=== PATIENT | female | born 1965 | race Caucasian/White ===

== ENCOUNTER 2020-03-13 13:23 | Outpatient (CLI) | payer OTHER, SELFPAY ==
--- NOTE | ~2020-03-13 | XR_ITS ---
EXAMINATION: XR hand RT min 3V, XR finger 1st RT min 2V EXAM DATE: 03/13/2020 13:48 INDICATION: Right finger pain, thumb locks up. No known recent injury. TECHNIQUE: Right hand frontal, lateral and oblique projections obtained and reviewed. Right 1st finge r frontal, lateral and oblique projections obtained and reviewed. There is no prior study for irina carlson. FINDINGS: Right metacarpal bones are unremarkable. There are no bony erosions identified. There is minimal polyarticular interphalangeal primary osteoarthritis. Carpal bones are unremarkable. There a re no acute fractures or dislocations identified. There is no subcutaneous gas. The soft tissue is unremarkable. There are no radiopaque foreign bodies. IMPRESSION: Minimal polyarticular interphalangeal osteoarthritis. Reviewed, dictated and finalized at location B. IMPRESSION: Minimal polyarticular interphalangeal osteoarthritis.
== END 2020-03-13 13:24 | disposition home or self-care (01) ==
PROVIDERS: PCP Internal Medicine; Visit Provider Nurse Practitioner Family
DX: M79.644 Pain in right finger(s) (principal); M19.042 Primary osteoarthritis, left hand; M19.041 Primary osteoarthritis, right hand
CPT/HCPCS: 73130; 73140

== ENCOUNTER 2020-04-13 10:07 | Outpatient (CLI) | payer OTHER, SELFPAY ==
--- NOTE | ~2020-04-13 | MM_ITS ---
EXAMINATION: MM screening judith BI w jacqueline HISTORY: Screening mammogram TECHNIQUE: Craniocaudal and mediolateral oblique 3-D tomosynthesis images were obtained and synthetic 2-D images were generated. CAD analysis was submitted and interpreted. COMPARISON: 03/05/2019 bilateral digital screening mammogram 02/14/2017 diagnostic right digital mammogram and complete right breast ultrasound 02/05/2017 bilateral digital screening mammogram BREAST PARENCHYMAL COMPOSITION: The breasts are heterogeneously dense, which may obscure small masses . FINDINGS: Stable mild fibroglandular asymmetry. There is no evidence of suspicious mass, calcificatio n, or architectural distortion to suggest malignancy in either breast. There has been no suspicious i nterval change. IMPRESSION: 1. No mammographic evidence of malignancy. 2. Recommend routine screening mammography in one year. BI-RADS Category 2: Benign finding(s). Reviewed, dictated and finalized at location A.
== END 2020-04-13 10:08 | disposition home or self-care (01) ==
PROVIDERS: PCP Internal Medicine; Visit Provider Obstetrics & Gynecology
DX: Z12.31 Encounter for screening mammogram for malignant neoplasm of breast (principal)
CPT/HCPCS: 77063; 77067

== ENCOUNTER 2021-04-26 08:39 | Outpatient (CLI) | payer OTHER, SELFPAY ==
--- NOTE | ~2021-04-26 | MM_ITS ---
EXAMINATION: MM screening judith BI w jacqueline HISTORY: Screening TECHNIQUE: Craniocaudal and mediolateral oblique 3-D tomosynthesis images were obtained and synthetic 2-D images were generated. CAD analysis was submitted and interpreted. COMPARISON: Comparison to multiple prior studies sequentially, with oldest reviewed study dated 01/11. BREAST PARENCHYMAL COMPOSITION: The breasts are heterogenously dense, which may obscure small masses. FINDINGS: There is no evidence of suspicious mass, calcification, or architectural distortion to sugg est malignancy in either breast. There has been no suspicious interval change. IMPRESSION: 1. No mammographic evidence of malignancy. 2. Recommend routine screening mammography in one year. BI-RADS Category 1: Negative Reviewed, dictated and finalized at location A.
== END 2021-04-26 08:40 | disposition home or self-care (01) ==
LOC: ANHIMG 08:40
PROVIDERS: PCP Internal Medicine; Visit Provider Family Medicine
DX: Z12.31 Encounter for screening mammogram for malignant neoplasm of breast (principal)
CPT/HCPCS: 77063; 77067

== ENCOUNTER 2021-05-31 00:45 | Day surgery (SDC) | payer OTHER, SELFPAY ==
[2021-05-22 13:48] VITALS: BMI 26.3
[2021-05-31 08:14] VITALS: BP 105/62; PULSE 95; RESP 16; TEMP 36.1; O2SAT 98; BMI 26.0
--- NOTE | 2021-05-31 08:14 | WPDANESEPPF ---
Anes - Initial Pre Proc Eval Procedure: Operation Date: 05/31/21 09:30 Proposed Procedures p Screening Colonoscopy - Yousuf Hammond MD Date/Time: 05/31/21 08:14 Surgeon: Yousuf Hammond MD Pre Op Diagnosis: neoplasm screening Z12.11 Patient Data Age: 56 Gender: F Height: 1.68 m Weight: 74 kg Allergies Allergy/AdvReac Type Severity Reaction Status Date / Time No Known Allergies Allergy Unverified 05/31/21 08:13 Home Medications Medication Instructions Recorded Confirmed Type levothyroxine 125 mcg PO DAILY 05/22/21 05/31/21 History progesterone micronized 200 mg PO HS 05/22/21 05/22/21 History testosterone 2 pump TRANSDERMAL DAILY 05/22/21 05/22/21 History valacyclovir 500 mg PO DAILY 05/22/21 05/22/21 History Patient hx anesthesia problems: none Family hx anesthesia problems: none PMFSH Past Medical History Medical History (Updated 05/31/21 @ 08:55 by Yousuf Hammond MD) Arthritis Depression Hypothyroidism Family History Family History (Updated 02/24/19 @ 13:25 by DOCTOR UNKNOWN) Father Diabetes mellitus Family history of obesity Hypertension Social History Social History Smoking status: Former smoker Tobacco type: cigarettes Smoking end date: 09/15/16 Alcohol intake: current Drinks per week: 12 Living arrangements: with family Spiritual care concerns: No Anes - Eval Final PreProcedure Day of Procedure 05/31/21 08:14 Patient weight: overweight Heart: regular rate and rhythm Lungs: clear to auscultation and normal air movement Airway: Mallampati scale class II Neurological: alert and oriented Last oral intake: >/= 8 hours ASA classification: II Emergent: no Anesthetic plan: proceed Anesthesia type and monitoring: general GIVS Informed Consent: The patient's anesthetic plan and its attendant risks and benefits were discussed with the patient/family/POA. Questions were solicited and answers provided to the satisfaction of the patient/family/POA.
[2021-05-31] MEDS: LACTATED RINGERS 1,000 ML 150 ML IV CONT (08:30)
--- NOTE | 2021-05-31 08:53 | WPDGICN ---
Assessment and Plan Assessment and plan (1) Encounter for screening colonoscopy: Code(s): Z12.11 - Encounter for screening for malignant neoplasm of colon Status: Acute Assessment and Plan: Patient presents for screening colonoscopy today. Further recommendations will be given after endoscopy. GI Consult Note Consult date/time: 05/31/21 08:53 HPI: Yue Arias is a 56 year old female Presents for screening colonoscopy. Patient reports that her current weight appetite bowel movements are normal. Patient denies abdominal pain. She has had no bleeding. Family history is noncontributory. neoplasia screening to be performed today. Review of Systems Review of Systems: All systems reviewed & are unremarkable except as noted in HPI and below PMFSH Past Medical History Medical History (Updated 05/31/21 @ 08:55 by Yousuf Hammond MD) Arthritis Depression Hypothyroidism Family History Family History (Updated 02/24/19 @ 13:25 by DOCTOR UNKNOWN) Father Diabetes mellitus Family history of obesity Hypertension Social History Social History Smoking status: Former smoker Tobacco type: cigarettes Smoking end date: 09/15/16 Alcohol intake: current Drinks per week: 12 Living arrangements: with family Spiritual care concerns: No Meds Home Medications and Allergies Home Medications Medication Instructions Recorded Confirmed Type levothyroxine 125 mcg PO DAILY 05/22/21 05/31/21 History progesterone micronized 200 mg PO HS 05/22/21 05/22/21 History testosterone 2 pump TRANSDERMAL DAILY 05/22/21 05/22/21 History valacyclovir 500 mg PO DAILY 05/22/21 05/22/21 History Allergies Allergy/AdvReac Type Severity Reaction Status Date / Time No Known Allergies Allergy Unverified 05/31/21 08:13 Vital Signs Vital Signs - 24 hr 05/31/21 08:14 Temperature 97 F L Pulse Rate 95 Respiratory Rate 16 Blood Pressure 105/62 Pulse Oximetry 98 Exam Narrative: Physical exam reveals patient to be alert. Vital signs stable. HEENT exam is unremarkable. Patient is anicteric. Lungs are clear to auscultation and percussion. Heart is without murmur or extra sounds. Abdominal exam bowel sounds are present soft nontender with no organomegaly. Digital external rectal exam is normal.
[2021-05-31 09:53] VITALS: BP 94/58; PULSE 70; RESP 16; O2SAT 100
[2021-05-31 10:03] VITALS: BP 85/54; PULSE 74; RESP 16; O2SAT 100
[2021-05-31 10:10] VITALS: BP 101/62; PULSE 64; RESP 16; O2SAT 100
== END 2021-05-31 10:20 | disposition home or self-care (01) ==
PROVIDERS: Visit Provider Internal Medicine Gastroenterology
PROC: 0DJD8ZZ Inspection of Lower Intestinal Tract, Via Natural or Artificial Opening Endoscopic (ICD-10-PCS; CPT 45378; principal; 2021-05-31 09:30)
DX: Z12.11 Encounter for screening for malignant neoplasm of colon (principal); K64.8 Other hemorrhoids; K57.30 Diverticulosis of large intestine without perforation or abscess without bleeding; E03.9 Hypothyroidism, unspecified; F32.9 Major depressive disorder, single episode, unspecified; Z87.891 Personal history of nicotine dependence
CPT/HCPCS: 45378; J2704; J7120

== ENCOUNTER → 2022-05-07 13:50 | Outpatient (CLI) | payer OTHER, SELFPAY ==
--- NOTE | ~2022-05-07 | CT_ITS ---
EXAMINATION: CT sinus wo con DATE: 05/07/2022 14:04 INDICATION: Chronic sinusitis. Frequent stuffy feeling. TECHNIQUE: Computed tomography (CT) of the paranasal sinuses was performed without intravenous contra st. The dose-length product was 294.16 mGy-cm. Automated exposure control and iterative reconstructio n technique were employed. COMPARISON: None FINDINGS: There are postsurgical changes of the frontal sinuses unchanged. There is mild mucosal thic kening of the ethmoid and left maxillary sinuses. Mild mucosal thickening of the frontal sinus. There are changes of resection of the right ostiomeatal unit. Left ostiomeatal unit is patent. Mastoids ar e pneumatized. Leftward nasal septal deviation. IMPRESSION: 1. Mild sinus disease. Reviewed, dictated and finalized at location A. IMPRESSION: 1. Mild sinus disease.
== END ==
PROVIDERS: PCP Family Medicine; Visit Provider Otolaryngology
DX: J32.8 Other chronic sinusitis (principal)
CPT/HCPCS: 70486

== ENCOUNTER 2022-05-17 10:20 | Observation (INO) | payer OTHER, SELFPAY ==
[2022-05-17 10:21] VITALS: BP 168/104; PULSE 98; RESP 20; TEMP 36.6; O2SAT 100
--- NOTE | 2022-05-17 10:50 | PC.NURSE ---
After much convincing patient reluctantly changes into paper scrubs. All belongings removed and secured in locked cabinet. Sruthi, cartographic technician present at bedside.
--- NOTE | 2022-05-17 11:05 | PC.NURSE ---
Dr. Melo at bedside to assess pt.
--- NOTE | 2022-05-17 11:45 | ED.GENADULT ---
[facility] - General Adult General Chief complaint: Psychiatric Symptoms Stated complaint: psych Time Seen by Provider: 05/17/22 10:23 History of Present Illness HPI narrative: 57-year-old female with a self-reported history of a psychotic break when she was 22 years old presented to the emergency department for psychiatric evaluation. Patient presented to the police department this morning and was asking bizarre questions. Patient ultimately made multiple repeated statements of I am going to kill myself, but you are going to keep me safe . Patient's friend states that the patient has been having hormonal issues and has not been sleeping well as of recently. Patient states she has not been taking her levothyroxine. Related Data Home Medications Medication Instructions Recorded Confirmed progesterone micronized 200 mg 200 mg PO HS 05/22/21 05/17/22 capsule testosterone 12.5 mg/1.25 gram per 2 pump transdermal DAILY 05/22/21 05/17/22 actuation (1%) transdermal gel pump valacyclovir 500 mg tablet 500 mg PO DAILY PRN Cold Sores 05/22/21 05/17/22 ibuprofen 200 mg tablet 200 mg PO Q6H PRN Pain 05/17/22 05/17/22 sertraline 50 mg tablet 75 mg PO DAILY 05/17/22 05/17/22 zolpidem 6.25 mg tablet,extended 6.25 mg PO HS PRN Sleep 05/17/22 05/17/22 release,multiphase Allergies Allergy/AdvReac Type Severity Reaction Status Date / Time No Known Allergies Allergy Unverified 05/31/21 08:13 Review of Systems Review of Systems: CONSTITUTIONAL: Denies fever, chills, or sweats. EYES: Denies visual changes, redness, or discharge. ENT: Denies rhinorrhea, congestion, sore throat, or otalgia. CARDIOVASCULAR: Denies chest pain, palpitations, or edema. RESPIRATORY: Denies cough or dyspnea. GASTROINTESTINAL: Denies abdominal pain, nausea, vomiting, or diarrhea. GENITOURINARY: Denies dysuria or hematuria. SKIN: Denies rash or itching. MUSCULOSKELETAL: Denies back pain, joint pain, or myalgia. NEUROLOGIC: Denies headache, numbness, or weakness. PSYCHIATRIC: Denies any psychiatric history other than mentioned in [facility] Past Medical History Medical History (Updated 05/17/22 @ 19:04 by Ok Melo MD) Arthritis Depression Hypothyroidism Family History Family History (Updated 05/17/22 @ 19:18 by Dolores Allen RN) Father Diabetes mellitus Family history of obesity Hypertension Sibling Breast cancer Social History Social History Smoking status: Former smoker Tobacco type: cigarettes Smoking end date: 09/15/16 Alcohol intake: current Drinks per week: 21 Substance use: never Spiritual care concerns: No Exam Narrative: APPEARANCE: Well appearing, no pain, no distress, well-nourished. HEAD: normocephalic, atraumatic. EYES: PERRLA/EOMI, conjunctivae clear. NOSE: Normal no drainage NECK: Supple. No adenopathy, no masses. RESPIRATORY: Airway patent, respirations nonlabored. Clear to auscultation bilaterally, no rales, rhonchi, wheezing. CARDIOVASCULAR: Regular rate and rhythm without murmurs rubs or gallops. ABDOMINAL: Soft, nontender, nondistended, normal bowel sounds MUSCULOSKELETAL: Moves all extremities. Strength/ROM intact, No edema, No calf tenderness. NEURO: Alert. Cranial nerves II through XII intact. Grossly intact SKIN: Warm, dry. Normal Color PSYCHIATRIC: agitated Course Course Emergency Course: Patient was treated with Ativan and Haldol. This did help the patient's mood significantly, operative with the collection of labs and participating in the medical work-up. Patient's TSH was greater than 100 and patient's free T4 was 0.1. Case was discussed with the hospitalist and patient was admitted for IV levothyroxine. Vital Signs Vital signs: Vital Signs Temperature 97.8 F 05/17/22 10:21 Pulse Rate 98 05/17/22 10:21 Respiratory Rate 20 05/17/22 10:21 Blood Pressure 168/104 H 05/17/22 10:21 Pulse Oximetry 100 05/17/22 10:21 Oxygen Delivery Room Air 05/17/22 10:21
--- NOTE | 2022-05-17 11:48 | PC.NURSE ---
radioisotope technician at bedside to obtain urine sample and lab work. Patient remains reluctantly cooperative and guarded.
[2022-05-17 12:06] LABS: Basophils Absolute Auto 0.1 K/mm3 (0.0-0.1); Basophils Percent Auto 0.9 % (0.2-1.2); Eosinophils Percent Auto 0.1 % (0-4.4); Hematocrit 43.8 % (37.0-47.0); Hemoglobin 14.1 g/dL (12.0-15.0); Immature Granulocyte Absolute 0.04 K/mm3 (0.00-0.031); Immature Granulocyte Percent A 0.5 % (0-0.5); Lymphocytes Absolute Auto 1.31 K/mm3 (0.9-3.2); Lymphocytes Percent Auto 16.1 % (18.3-44.2); Mean Corpuscular HGB Conc 32.2 g/dl (32-36); Mean Corpuscular Hemoglobin 29.2 pg (26-34); Mean Corpuscular Volume 90.7 fl (80-100); Mean Platelet Volume 9.9 fl (7.4-10.4); Monocytes Absolute Auto 0.6 K/mm3 (0.1-0.6); Monocytes Percent Auto 7.1 % (2.6-8.5); Neutrophils Absolute Auto 6.2 K/mm3 (1.3-6.7); Neutrophils Percent Auto 75.3 % (45.5-73.1); Platelet Count Result 239 k/mm3 (150-375); Red Blood Count 4.83 M/mm3 (4.2-5.4); Red Cell Distribution Width 15.1 % (11.5-14.5); White Blood Count 8.2 K/mm3 (4.5-10.0)
[2022-05-17 12:07] LABS: Appearance Urine Clear (Clear); Bilirubin Urine 1+ (Negative); Blood Urine Negative (Negative); Color Urine Yellow (Yellow); Glucose Urine UA Negative (Negative); Ketones Urine 1+ mg/dL (Negative); Leukocyte Esterase Ur Trace LEU/UL (Negative); Nitrate Urine Negative (Negative); Protein Urine 2+ mg/dL (Negative); Specific Grav Ur 1.025 (1.001-1.035); Urobilinogen Urine 0.2 mg/dL (<2.0)
[2022-05-17 12:10] LABS: Mucus Urine Moderate /lpf; Squamous Epithelial Cell Urine Many /hpf (Few); WBC Urine 16-20 /hpf
--- NOTE | 2022-05-17 12:10 | PC.NURSE ---
Patient allowing blood to be drawn and walked to to provide urine sample. Patient refusing medications. Medications held at this time per MD verbal order.
[2022-05-17 12:12] LABS: Add Urine Microscopic? YES
[2022-05-17 12:15] LABS: Alanine Aminotransferase 32 U/L (6-35); Albumin Level 5.7 g/dL (3.5-5.1); Alkaline Phosphatase 65 U/L (38-126); Anion Gap 20 mmol/L (8-16); Aspartate Amino Transferase 51 U/L (14-36); Bilirubin,Total 1.5 mg/dL (0.2-1.3); Blood Urea Nitrogen 16 mg/dL (7-17); Calcium 9.4 mg/dL (8.4-10.2); Carbon Dioxide 25 mmol/L (22-30); Chloride 93 mmol/L (98-107); Estimated CRCL calculation 68 ml/min; Estimated Glomerular Filt Rate 58; Glucose 132 mg/dL (65-110); Potassium 3.9 mmol/L (3.4-5.0); Sodium 138 mmol/L (137-145)
[2022-05-17 12:16] LABS: Acetaminophen < 10 ug/mL (10-30); Ethanol < 10 mg/dL (<10); Salicylate < 1.0 mg/dL (2-20)
[2022-05-17 12:24] LABS: Amphetamine Screen Urine Negative (Negative); Barbiturate Screen Urine Negative (Negative); Benzodiazepines Screen Urine Positive (Negative); Cannabinoid Screen Urine Negative (Negative); Cocaine Screen Urine Negative (Negative); Methadone Screen Urine Negative (Negative); Opiate Screen Urine Negative (Negative); Phencyclidine Screen Urine Negative (Negative)
[2022-05-17 12:42] LABS: SARS-CoV-2 RNA PCR Negative
--- NOTE | 2022-05-17 13:52 | PC.NURSE ---
Patient noted to be yelling at the sitter at bedside. This RN and MD to the bedside. Patient continues to repeat herself and verbalize everything she sees happening. i.e. you're nodding, you shut the door, you looked at your watch, etc. It is unclear why the patient is upset but she is fairly easily de-escalated. Calm and speaking in a normal tone at this time.
[2022-05-17 13:54] LABS: Thyroid Stimulating Hormone > 100.000 uIU/mL (0.465-4.680)
[2022-05-17] MEDS: LORazepam INJ (*CRX) 2 MG/ML VIAL IM (14:34)
--- NOTE | 2022-05-17 14:34 | PC.NURSE ---
Patient refusing blood draw. IM Ativan administered as ordered. Patient uncooperative with care but ultimately allowed this RN to administer the medication to the left deltoid.
--- NOTE | 2022-05-17 14:59 | PC.NURSE ---
PMH from - ppd 16 years ago, Depression/anxiety - med controlled.
[2022-05-17] MEDS: HALOPERIDOL LACTATE 5 MG/ML VIAL IM (15:10)
[2022-05-17] MEDS: LEVOTHYROXINE SODIUM INJ 100 MCG/5 ML VIAL 62.5 MCG IV PUSH (18:14)
[2022-05-17 18:20] VITALS: BP 133/73; PULSE 72; RESP 16; TEMP 36; O2SAT 100
--- NOTE | 2022-05-17 18:38 | ADMGEN ---
This patient, Yue Arias, was admitted to Intensive Care Unit-4. Patient/family oriented to hospital policies and general routines including ID bracelet, bed and alarms, visiting hours, pain management, procedures, bathroom and other care routines, personal items, smoking policy, room service/diet, and visiting hours. Information on how to activate the Rapid Response Team has been discussed. Patient/Family are encouraged to report perceived risks to care and to ask questions if they do not understand what they are told or what they should do.
[2022-05-17 18:58] VITALS: BP 133/73; PULSE 72; RESP 16; TEMP 36
[2022-05-17 19:00] VITALS: BP 141/88; PULSE 60; RESP 14; TEMP 36.9; O2SAT 98
[2022-05-17 19:01] VITALS: BMI 26.8
--- NOTE | 2022-05-17 19:25 | PC.NURSE ---
Pt states she has been receiving care from a chiropractor (Dr. Hoff at [facility]) regarding her thyroid. Pt is unsure of the names of medications and doses that she is taking, but she is undergoing bio-identical hormone replacement therapy. Due to this, she has not been taking her levothyroxine. Pt states that she went to the police station today to ask if she was okay to drive her car home. Pt states that she told the police that her and her children are safe, and that she is not suicidal. Pt is calm and cooperative. Pt is adamant that she does not want her ex- Yousuf to have any information as to why she is here. She states that her oldest child, Heriberto (17), can come and see her. Pt also states that her sister, Tammy, is her POA, but does not want to list her as an emergency contact because she recently had a mastectomy. Pt's friend, Good, is the only emergency contact.
[2022-05-17 20:00] VITALS: PULSE 71
--- NOTE | 2022-05-17 20:46 | PM.IMHP ---
H&P: HPI History of Present Illness Date/Time: 05/17/22 20:46 Chief Complaint: Psychiatric issues Narrative: this is a 57-year-old female patient who came to the emergency room Because she was acting bizarrely. The patient presented to the [facility] apartment this morning and was asking bizarre questions. The patient kept telling the please the multiple times I am going to kill myself, but you are going to help keep me safe . The patient tells me that she has been going to the chiropractor for bio hormonal therapy and was doing well for a while but then they put her back on her levothyroxine. The patient admits that she does not use her levothyroxine. The patient stated that she is having periods of depression and she recently had her sertraline increased. The patient tells me now that she did not really want to commit suicide she just knew she needed help and felt that she was declining in health and that she only said that she wanted to kill herself to so she would get medical attention. The patient is very lethargic but she is waking up enough to answer questions for me. Her total bilirubin was mildly elevated 1.5 AST is 51. TSH was greater than 100.000 and her T4 was 0.10. I spoke with my collaborative who was not on-call and she suggested that we center elsewhere for where there was an handle assembler. And I also notified my collaborative who is on-call who recommended that we keep the patient. It was recommended that the patient be placed in IMU. Her urine was abnormal but it appears to be contaminated. Urine drug screen was positive for benzodiazepine however the patient was given Ativan in the emergency room as well as Haldol. The patient was given IV levothyroxine in the ER. The patient was awake enough to talk to me and answer some questions. She was admitted into ICU as IMU overflow. Initially she was admitted to inpatient and changed to observation status on the date of service 05/17/2022. Review of Systems Review of Systems: See HPI All systems reviewed & are unremarkable except as noted in HPI and below Constitutional: Constitutional: Reports as per HPI and Reports no additional constitutional complaints Eyes: Eyes: Reports as per HPI and Reports no additional eye complaints ENT: Reports system reviewed and no additional complaints, except as documented and Reports Normal hearing present Cardiovascular: Cardiovascular: Reports no additional cardiovascular complaints Respiratory: Respiratory: Reports no additional respiratory complaints and Reports no additional respiratory complaints Gastrointestinal: Gastrointestinal: Reports as per HPI and Reports no additional gastrointestinal complaints Musculoskeletal: Musculoskeletal: Reports no additional musculoskeletal complaints Integumentary/Breasts: Skin/Breast: Reports system reviewed and no additional complaints, except as docu and Reports as per HPI Neurologic: Reports system reviewed and no additional complaints, except as documented, Reports as per HPI and Reports Normal hearing present Psychiatric: Psychiatric: Reports no additional psychiatric complaints and Reports as per HPI Endocrine: Endocrine: Reports no additional endocrine complaints Hematologic/Lymphatic: Hematologic/Lymphatic: Reports no additional hematologic/lymphatic complaints Allergic/Immunologic: Allergic/Immunologic: Reports no additional allergic/immunologic complaints PMFSH Past Medical History Medical History Arthritis Depression Hypothyroidism Surgical History Surgical History H/O colonoscopy H/O dilation and curettage Family History Family History Father Diabetes mellitus Family history of obesity Hypertension Sibling Breast cancer Social History Social History (Updated 05/17/22 @ 20:56 by Alina Myers
[2022-05-17 22:00] VITALS: PULSE 63
[2022-05-18] VITALS (13 sets, daily range): BP systolic 104–132; BP diastolic 63–98; PULSE 55–84; RESP 12–16; TEMP 36.5–36.8; O2SAT 91–97
[2022-05-18 04:08] LABS: Basophils Absolute Auto 0.1 K/mm3 (0.0-0.1); Basophils Percent Auto 0.9 % (0.2-1.2); Eosinophils Absolute Auto 0.1 K/mm3 (0-0.3); Hematocrit 40.7 % (37.0-47.0); Hemoglobin 13.5 g/dL (12.0-15.0); Immature Granulocyte Absolute 0.02 K/mm3 (0.00-0.031); Immature Granulocyte Percent A 0.3 % (0-0.5); Lymphocytes Absolute Auto 2.82 K/mm3 (0.9-3.2); Lymphocytes Percent Auto 35.6 % (18.3-44.2); Mean Corpuscular HGB Conc 33.2 g/dl (32-36); Mean Corpuscular Hemoglobin 29.7 pg (26-34); Mean Corpuscular Volume 89.5 fl (80-100); Monocytes Absolute Auto 0.8 K/mm3 (0.1-0.6); Monocytes Percent Auto 9.6 % (2.6-8.5); Neutrophils Absolute Auto 4.2 K/mm3 (1.3-6.7); Neutrophils Percent Auto 52.6 % (45.5-73.1); Platelet Count Result 203 k/mm3 (150-375); Red Blood Count 4.55 M/mm3 (4.2-5.4); Red Cell Distribution Width 15.1 % (11.5-14.5); White Blood Count 7.9 K/mm3 (4.5-10.0)
[2022-05-18 04:17] LABS: Alanine Aminotransferase 25 U/L (6-35); Albumin Level 4.6 g/dL (3.5-5.1); Alkaline Phosphatase 48 U/L (38-126); Anion Gap 9 mmol/L (8-16); Aspartate Amino Transferase 51 U/L (14-36); Bilirubin,Total 1.5 mg/dL (0.2-1.3); Blood Urea Nitrogen 16 mg/dL (7-17); Carbon Dioxide 27 mmol/L (22-30); Chloride 100 mmol/L (98-107); Estimated CRCL calculation 60 ml/min; Estimated Glomerular Filt Rate > 60; Glucose 90 mg/dL (65-110); Magnesium 2.4 mg/dL (1.6-2.3); Potassium 3.9 mmol/L (3.4-5.0); Sodium 136 mmol/L (137-145)
[2022-05-18 04:18] LABS: Lactic Acid Reflex 0.6 mmol/L (0.7-2.0)
[2022-05-18] MEDS: LEVOTHYROXINE SODIUM INJ 100 MCG/5 ML VIAL 62.5 MCG IV PUSH (05:45)
[2022-05-18 07:33] LABS: Thyroid Stimulating Hormone Reflex > 100.000 uIU/mL (0.465-4.68)
[2022-05-18 08:00] LABS: Free T4 Free Thyroxine Reflex 0.14 ng/dL (0.78-2.19)
--- NOTE | 2022-05-18 08:55 | PM.IMPN ---
Progress Note: A&P Assessment and Plan (1) Adult myxedema: Code(s): E03.9 - Hypothyroidism, unspecified Status: Acute (2) Psychosis: Code(s): F29 - Unspecified psychosis not due to a substance or known physiological condition Status: Acute (3) Depression: Code(s): F32.9 - Major depressive disorder, single episode, unspecified Status: Acute (4) Hypothyroidism: Code(s): E03.9 - Hypothyroidism, unspecified Status: Acute Plan Patient presents with psychosis. She did require a dose of Haldol and Ativan in the emergency room. She was discovered to have severe hypothyroidism with a TSH greater than 100. She was given levothyroxine 140mcg IV once then 62.5mcg IV daily. Patient has been admitted to the ICU for close observation. Mental status is better. She will need 2-3 days of IV then we can change to oral levothyroxine. When she is switched to oral, will have crisis evaluation. Continue Zoloft for her depression. Add Cytomel. DVT prophylaxis: Lovenox GI prophylaxis: Pepcid Code status: Full Diet: Regular Subjective Date/time seen: 05/18/22 08:55 Interval history: 57-year-old female with depression and hypothyroidism who presents emergency room with bizarre behavior. Nursing states patient is much improved since admission. She is now answer questions appropriately. Patient states that she has never felt suicidal or been hospitalized in the psychiatric facility. She does mention that she was once hospitalized for ?sleep deprivation and made suicide overtones. She has had hypothyroidism for 20+ years. She is normally well controlled with slight adjustments in her medications over the years. About 6 weeks ago, she decided to do the ?natural approach? with her thyroid medicine. She went to a compounding pharmacy for natural thyroid replacement. She understands that this was ineffective. She also takes zolpidem on occasion. She denies that she is overdose on the room medications. Denies currently any suicidal or homicidal ideation. Exam Narrative: AF 98.1 104/63 75 16 97% ra Gen - NARD Chest - CTA bilaterally, nml RR CV - RRR S1/S2 Abd - Soft, NT/ND, Positive BS Ext - No pedal edema Neuro - Alert and oriented. Nonfocal exam. Psych - Nml mood and affect Skin - Warm and dry UPT Negative Objective Data Vital Signs Vital Signs: Vital Signs - 24 hr 05/17/22 10:21 05/17/22 18:20 05/17/22 19:00 Temperature 97.8 F 96.8 F L 98.5 F Pulse Rate 98 72 60 Respiratory Rate 20 16 14 Blood Pressure 168/104 H 133/73 141/88 H Pulse Oximetry 100 100 98 Oxygen Delivery Room Air 05/17/22 20:00 05/17/22 20:00 05/17/22 22:00 Temperature Pulse Rate 71 63 Respiratory Rate Blood Pressure Pulse Oximetry Oxygen Delivery Room Air 05/18/22 00:00 05/18/22 00:00 05/18/22 00:00 Temperature 98.2 F Pulse Rate 65 60 Respiratory Rate 14 Blood Pressure 117/79 Pulse Oximetry 95 Oxygen Delivery Room Air 05/18/22 02:00 05/18/22 04:00 05/18/22 04:00 Temperature 98.1 F Pulse Rate 61 58 L 58 L Respiratory Rate 16 Blood Pressure 104/63 Pulse Oximetry 97 Oxygen Delivery 05/18/22 04:00 05/18/22 06:00 05/18/22 08:00 Temperature Pulse Rate 58 L 75 Respiratory Rate Blood Pressure Pulse Oximetry Oxygen Delivery Room Air 05/17/22 18:58 Temperature 96.8 F L Pulse Rate 72 Respiratory Rate 16 Blood Pressure 133/73 Pulse Oximetry Oxygen Delivery Intake/Output Intake/Output: Intake & Output 05/15/22 05/16/22 05/17/22 05/18/22 23:59 23:59 23:59 23:59 Intake Total 440 Output Total 300 Balance 140 Meds/Results Medications: Active Medications Generic Name Dose Route Start Last Admin Trade Name Freq PRN Reason Stop Dose Admin Famotidine 20 mg 05/18/22 09:00 Famotidine 20 Mg Tablet PO Q12HR [facility] Levothyroxine Sodium 62.5 mcg 05/18/22 06:30 05/18/22 05:4
[2022-05-18] MEDS: LEVOTHYROXINE SODIUM INJ 100 MCG/5 ML VIAL 140 MCG IV PUSH (08:59)
[2022-05-18] MEDS: FAMOTIDINE 20 MG TABLET PO ×2 (09:00→20:13)
[2022-05-18] MEDS: SERTRALINE HCL 25 MG TABLET 75 MG PO (09:00)
[2022-05-18] MEDS: ENOXAPARIN 40 MG/0.4 ML SYRINGE SUB-Q (12:04)
[2022-05-18] MEDS: ACETAMINOPHEN 325 MG TABLET 650 MG PO (18:10)
--- NOTE | 2022-05-18 19:17 | PC.NURSE ---
notified dr. tomlin of patient's request to have home progesterone restarted. Request denied.
[2022-05-19] VITALS (8 sets, daily range): BP systolic 109–132; BP diastolic 74–93; PULSE 50–82; RESP 14–21; TEMP 36.8; O2SAT 94–100
[2022-05-19] MEDS: ACETAMINOPHEN 325 MG TABLET 650 MG PO (00:14)
[2022-05-19 04:16] LABS: Basophils Absolute Auto 0.1 K/mm3 (0.0-0.1); Eosinophils Absolute Auto 0.1 K/mm3 (0-0.3); Eosinophils Percent Auto 1.2 % (0-4.4); Hematocrit 37.2 % (37.0-47.0); Hemoglobin 11.9 g/dL (12.0-15.0); Immature Granulocyte Absolute 0.02 K/mm3 (0.00-0.031); Immature Granulocyte Percent A 0.3 % (0-0.5); Lymphocytes Absolute Auto 3.85 K/mm3 (0.9-3.2); Lymphocytes Percent Auto 52.4 % (18.3-44.2); Mean Corpuscular Hemoglobin 29.2 pg (26-34); Mean Corpuscular Volume 91.2 fl (80-100); Mean Platelet Volume 10.4 fl (7.4-10.4); Monocytes Absolute Auto 0.7 K/mm3 (0.1-0.6); Monocytes Percent Auto 9.5 % (2.6-8.5); Neutrophils Absolute Auto 2.6 K/mm3 (1.3-6.7); Neutrophils Percent Auto 35.6 % (45.5-73.1); Platelet Count Result 183 k/mm3 (150-375); Red Blood Count 4.08 M/mm3 (4.2-5.4); Red Cell Distribution Width 14.9 % (11.5-14.5); White Blood Count 7.4 K/mm3 (4.5-10.0)
[2022-05-19 04:28] LABS: Alanine Aminotransferase 23 U/L (6-35); Albumin Level 4.3 g/dL (3.5-5.1); Alkaline Phosphatase 42 U/L (38-126); Anion Gap 7 mmol/L (8-16); Aspartate Amino Transferase 48 U/L (14-36); Bilirubin,Total 1.4 mg/dL (0.2-1.3); Blood Urea Nitrogen 15 mg/dL (7-17); Calcium 8.8 mg/dL (8.4-10.2); Carbon Dioxide 26 mmol/L (22-30); Chloride 98 mmol/L (98-107); Estimated CRCL calculation 60 ml/min; Estimated Glomerular Filt Rate > 60; Glucose 96 mg/dL (65-110); Magnesium 2.2 mg/dL (1.6-2.3); Phosphorus 4.2 mg/dL (2.5-4.5); Potassium 3.9 mmol/L (3.4-5.0); Sodium 131 mmol/L (137-145)
[2022-05-19 04:54] LABS: Free T4 Free Thyroxine 0.34 ng/mL (0.78-2.19)
[2022-05-19] MEDS: LEVOTHYROXINE SODIUM INJ 100 MCG/5 ML VIAL 62.5 MCG IV PUSH (06:14)
[2022-05-19] MEDS: SERTRALINE HCL 25 MG TABLET 75 MG PO (08:43)
[2022-05-19] MEDS: FAMOTIDINE 20 MG TABLET PO (08:44)
[2022-05-19] MEDS: ENOXAPARIN 40 MG/0.4 ML SYRINGE SUB-Q (08:44)
--- NOTE | 2022-05-19 17:00 | PM.DS ---
DS: Admitting Diagnosis Discharge Date 05/19/22 Admitting Diagnosis Bizarre behavior. DS: Discharge Diagnosis Discharge Diagnosis (1) Adult myxedema: Code(s): E03.9 - Hypothyroidism, unspecified Status: Acute (2) Suicidal ideation: Code(s): R45.851 - Suicidal ideations Status: Acute (3) Psychosis: Code(s): F29 - Unspecified psychosis not due to a substance or known physiological condition Status: Acute (4) Depression: Code(s): F32.9 - Major depressive disorder, single episode, unspecified Status: Acute (5) Hypothyroidism: Code(s): E03.9 - Hypothyroidism, unspecified Status: Acute DS: Summary Hospital Course Reason for hospitalization: 57-year-old female with depression and hypothyroidism who presents emergency room with bizarre behavior. Please see H&P for details Hospital Course: Patient presented with psychosis and concerns for suicidal ideation. She did require a dose of Haldol and Ativan in the emergency room. UPT Negative. She was discovered to have severe hypothyroidism with a TSH greater than 100. She was given levothyroxine 140mcg IV once then 62.5mcg IV daily and received 3 doses. She is supposed to be on levothyroxine 125mcg daily but has been off this medication for 1-2 month. Patient was admitted to the ICU for close observation. Mental status improved and she denied suicidal or homicidal ideation. She was cleared medically for discharge and crisis came out for an evaluation. We had continued Zoloft for her depression. She was educated about the benefits of adhering to her medical regimen. Crisis made a safety contract with the patient. Patient overall did well and was able to be discharged home on 05/19/2022. Status at Discharge Cognitive/behavioral status at discharge: Stable Time Spent with Patient Time attestation: Total time spent providing and/or coordinating discharge services: 35 minutes Time spent: Greater than 30 minutes Exam Narrative: AF 98.2 132/92 66 21 100% ra Gen - NARD Chest - CTA bilaterally, nml RR CV - RRR S1/S2 Abd - Soft, NT/ND, Positive BS Ext - No pedal edema Neuro - Alert and oriented. Nonfocal exam. Psych - Nml mood and affect Skin - Warm and dry DS: Data Data Completed and Pending Labs on day of discharge: Labs from last 24 hours 05/19/22 05/19/22 05/19/22 04:09 04:09 04:09 WBC 7.4 RBC 4.08 L Hgb 11.9 L Hct 37.2 MCV 91.2 MCH 29.2 MCHC 32.0 RDW 14.9 H Plt Count 183 MPV 10.4 Immature Gran % (Auto) 0.3 Neut % (Auto) 35.6 L Lymph % (Auto) 52.4 H [place] % (Auto) 9.5 H Eos % (Auto) 1.2 Baso % (Auto) 1.0 Lymph # (Auto) 3.85 H [place] # (Auto) 0.7 H Eos # (Auto) 0.1 Baso # (Auto) 0.1 Abs Immat Gran (auto) 0.02 Absolute Neuts (auto) 2.6 Absolute Nucleated RBC 0.0 Nucleated RBC % 0.0 Sodium 131 L Potassium 3.9 Chloride 98 Carbon Dioxide 26 Anion Gap 7 L BUN 15 Creatinine 0.90 Estim Creat Clear Calc 60 Estimated GFR > 60 Glucose 96 Calcium 8.8 Phosphorus 4.2 Magnesium 2.2 Total Bilirubin 1.4 H AST 48 H ALT 23 Alkaline Phosphatase 42 Total Protein 7.0 Albumin 4.3 Free T4 0.34 L Discharge Plan Discharge Attending physician on discharge: Talat Naqvi Discharging Clinician: Talat Naqvi Anticipated Discharge Date/Time: 05/19/22 17:08 Patient Disposition: Home, Self-Care Activity: as tolerated Diet: regular Discharge Instructions: Contact your doctor or call 911 and come to the Emergency Room if you have any any feelings about hurting yourself or others or other worrisome symptoms. Follow-up with your doctor in 1-2 weeks. Please call for appointment. Thank you for using [facility] for your health care needs. Stand Alone Forms: General Discharge Information Follow-up/Referrals: Twila
[2022-05-21 20:18] LABS: Triiodothyronine T3 Free <0.5 pg/mL (2.3-4.2)
== END 2022-05-19 17:23 | disposition home or self-care (01) ==
LOC: ANHED 11:41 → ANHICU 05-19 17:10
PROVIDERS: Internal Medicine; Nurse Practitioner; Admitting Provider Chiropractor; Emergency Provider Emergency Medicine; PCP Family Medicine; Visit Provider Internal Medicine
DX: E03.9 Hypothyroidism, unspecified (principal); R45.851 Suicidal ideations; F29 Unspecified psychosis not due to a substance or known physiological condition; F32.9 Major depressive disorder, single episode, unspecified; R53.83 Other fatigue; E80.7 Disorder of bilirubin metabolism, unspecified; Z20.822 Contact with and (suspected) exposure to COVID-19; Z87.891 Personal history of nicotine dependence; Z79.1 Long term (current) use of non-steroidal anti-inflammatories (NSAID); Z79.899 Other long term (current) drug therapy
CPT/HCPCS: 36415; 80053; 80307; 81001; 81025; 82533; 83605; 83735; 84100; 84439; 84443; 84481; 85025; 87086; 87088; 96372; 96374; 96376; 99285; A9270; C9803; G0378; G0379; J1630; J1650; J2060; U0003; U0005

== ENCOUNTER 2022-05-22 16:08 | Outpatient (CLI) | payer OTHER, SELFPAY ==
--- NOTE | ~2022-05-22 | MM_ITS ---
EXAMINATION: MM screening [facility] BI w jacqueline HISTORY: Screening TECHNIQUE: Craniocaudal and mediolateral oblique 3-D tomosynthesis images were obtained and synthetic 2-D images were generated. CAD analysis was submitted and interpreted. COMPARISON: 04/26/2021, 04/13/2020, 03/05/2019 bilateral screening mammogram examinations BREAST PARENCHYMAL COMPOSITION: The breasts are heterogeneously dense, which may obscure small masses ..... FINDINGS: Stable fibroglandular asymmetry. There is no evidence of suspicious mass, calcification, or architectural distortion to suggest malignancy in either breast. There has been no suspicious interv al change. IMPRESSION: 1. No mammographic evidence of malignancy. 2. Recommend routine screening mammography in one year. BI-RADS Category 2: Benign finding(s). Reviewed, dictated and finalized at location A.
== END 2022-05-22 16:09 | disposition home or self-care (01) ==
PROVIDERS: PCP Family Medicine; Visit Provider Obstetrics & Gynecology
DX: Z12.31 Encounter for screening mammogram for malignant neoplasm of breast (principal)
CPT/HCPCS: 77063; 77067

== ENCOUNTER 2022-06-20 13:13 | Emergency (ER) | payer OTHER, SELFPAY ==
--- NOTE | ~2022-06-20 | CT_ITS ---
EXAMINATION: CT facial bones wo con DATE: 06/20/2022 14:09 INDICATION: Face injury. TECHNIQUE: Computed tomography (CT) of the facial bones and maxillofacial region was performed withou t intravenous contrast. Automated exposure control and iterative reconstruction technique were employ ed. The dose-length product was 278.53 mGy-cm. COMPARISON: CT maxillofacial 07/19/2006 FINDINGS: The orbits are normal. There is leftward deviation of the nasal septum. There is mild mucos al thickening in left maxillary sinus. No acute fracture. There is plate and screw fixation of the fr ontal bone. There is chronic opacification of the frontal sinuses with hyperdense material. There is chronic mucosal thickening in the anterior ethmoid sinuses. There are changes of right uncinectomy an d right-sided ethmoidectomies. There is forehead and right cheek soft tissue swelling. IMPRESSION: 1. No acute fracture. Reviewed, dictated and finalized at location A. IMPRESSION: 1. No acute fracture.
[2022-06-20 13:17] VITALS: BP 146/87; PULSE 71; RESP 16; TEMP 36.8; O2SAT 100
--- NOTE | 2022-06-20 13:52 | ED.GENADULT ---
HPI - General Adult General Chief complaint: Fall Stated complaint: fall, facial trauma Time Seen by Provider: 06/20/22 13:21 History of Present Illness HPI narrative: 57-year-old female presents to our department after sustaining a mechanical fall last night. Patient was trying to follow a stray dog through the [place] in the middle of the night when she tripped on something and fell forward striking her face on a wound tree. There was no loss of consciousness and she remembers all events leading up to and after the event. She is unsure about last tetanus. Related Data Home Medications Medication Instructions Recorded Confirmed testosterone 12.5 mg/1.25 gram per 2 pump transdermal DAILY 05/22/21 05/17/22 actuation (1%) transdermal gel pump valacyclovir 500 mg tablet 500 mg PO DAILY PRN Cold Sores 05/22/21 05/17/22 ibuprofen 200 mg tablet 200 mg PO Q6H PRN Pain 05/17/22 05/17/22 sertraline 50 mg tablet 75 mg PO DAILY 05/17/22 05/17/22 progesterone micronized 100 mg 25 mg PO HS 05/18/22 05/18/22 capsule Allergies Allergy/AdvReac Type Severity Reaction Status Date / Time No Known Allergies Allergy Verified 06/20/22 13:19 Review of Systems Review of Systems: CONSTITUTIONAL: Denies fever, chills, or sweats. EYES: Denies visual changes, redness, or discharge. ENT: Denies rhinorrhea, congestion, sore throat, or otalgia. CARDIOVASCULAR: Denies chest pain, palpitations, or edema. RESPIRATORY: Denies cough or dyspnea. GASTROINTESTINAL: Denies abdominal pain, nausea, vomiting, or diarrhea. GENITOURINARY: Denies dysuria or hematuria. SKIN: Denies rash or itching. MUSCULOSKELETAL: Denies back pain, joint pain, or myalgia. NEUROLOGIC: Denies headache, numbness, or weakness. PSYCHIATRIC: Denies anxiety or depression. 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 Her sister is the durable power assistant city attorney for healthcare. She is and has 2 children. She is a former smoker. She denies any marijuana or illicit drugs. She does like to have a glass or 2 of white wine at night. Code status full code Smoking status: Former smoker Tobacco type: cigarettes Smoking end date: 09/15/16 Alcohol intake: current Drinks per week: 21 Substance use: never Spiritual care concerns: No Exam Narrative: GENERAL: Well-appearing, well-nourished, and in no acute distress. HEAD: Normocephalic, atraumatic., Multiple abrasions and bruising noted forehead and bilateral cheeks, no loose dentition EYES: PERRLA and EOMI. ENT: Nares clear, no rhinorrhea or epistaxis. Mucous membranes moist. NECK: Supple. No C-spine tenderness CHEST: Clear to auscultation. No respiratory distress. HEART: Regular rate and rhythm. No murmur heard. Normal peripheral pulses. ABDOMEN: Soft, nontender, nondistended, normal active bowel sounds. EXTREMITIES: Normal range of motion. No edema. SKIN: Warm, dry, no rash. NEURO: No focal deficits. Alert and oriented x3. PSYCH: Normal mood and affect. Course Vital Signs Vital signs: Vital Signs Temperature 98.2 F 06/20/22 13:17 Pulse Rate 71 06/20/22 13:17 Respiratory Rate 16 06/20/22 13:17 Blood Pressure 146/87 H 06/20/22 13:17 Pulse Oximetry 100 06/20/22 13:17 Temperature 98.2 F 06/20/22 13:17 Pulse Rate 71 06/20/22 13:17 Respiratory Rate 16 06/20/22 13:17 Blood Pressure 146/87 H 06/20/22 13:17 Pul
[2022-06-20] MEDS: TETANUS,DIPHTHERIA,AC PERTUSSIS ADULT (0.5 ML) BOOSTRIX IM (14:21)
== END 2022-06-20 15:05 | disposition home or self-care (01) ==
PROVIDERS: Emergency Provider Emergency Medicine; PCP Family Medicine
DX: S00.81XA Abrasion of other part of head, initial encounter (principal); W01.198A Fall on same level from slipping, tripping and stumbling with subsequent striking against other object, initial encounter; E03.9 Hypothyroidism, unspecified; M19.90 Unspecified osteoarthritis, unspecified site; F32.A Depression, unspecified; Z87.891 Personal history of nicotine dependence; Z23 Encounter for immunization
CPT/HCPCS: 70486; 90471; 90715; 99284

== ENCOUNTER → 2022-07-08 15:02 | Outpatient (CLI) | payer OTHER, SELFPAY ==
--- NOTE | ~2022-07-08 | US_ITS ---
EXAMINATION: US soft tissue LE RT DATE: 07/08/2022 15:28 INDICATION: Right leg mass TECHNIQUE: Multiple grayscale and Doppler ultrasound images of the region of concern at the popliteal fossa and lateral calf of the right lower limb were obtained. COMPARISON: None FINDINGS: Small amount of fluid which is within normal limits at the posterior recess of the right knee joint. No evident Gant's cyst. Normal appearance to the subcutaneous fat and musculature at the region of c oncern at the lateral right calf. No abnormal masses or fluid collections identified. IMPRESSION: 1. Normal study. No Gant's cyst or other abnormal masses or fluid collections at the regions of conc harry at the right popliteal fossa and lateral calf. Reviewed, dictated and finalized at location A. IMPRESSION: 1. Normal study. No Gant's cyst or other abnormal masses or fluid collections at the regions of concern at the right popliteal fossa and lateral calf.
== END ==
PROVIDERS: PCP Family Medicine; Visit Provider Family Medicine
DX: R22.41 Localized swelling, mass and lump, right lower limb (principal)
CPT/HCPCS: 76882

== ENCOUNTER 2023-06-28 10:25 | Outpatient (CLI) | payer OTHER, SELFPAY ==
--- NOTE | ~2023-06-28 | MM_ITS ---
EXAMINATION: MM screening [facility] BI w jacqueline HISTORY: Screening mammogram TECHNIQUE: Craniocaudal and mediolateral oblique 3-D tomosynthesis images were obtained and synthetic 2-D images were generated. CAD analysis was submitted and interpreted. COMPARISON: 05/22/2022, 04/26/2021, 04/13/2020 bilateral screening mammogram examinations BREAST PARENCHYMAL COMPOSITION: The breasts are heterogeneously dense, which may obscure small masses . FINDINGS: Stable mild fibroglandular asymmetry. There is no evidence of suspicious mass, calcificatio n, or architectural distortion to suggest malignancy in either breast. There has been no suspicious i nterval change. IMPRESSION: 1. No mammographic evidence of malignancy. 2. Recommend routine screening mammography in one year. BI-RADS Category 1: Negative Reviewed, dictated and finalized at location B.
== END 2023-06-28 10:26 | disposition home or self-care (01) ==
PROVIDERS: PCP Family Medicine; Visit Provider Obstetrics & Gynecology
DX: Z12.31 Encounter for screening mammogram for malignant neoplasm of breast (principal)
CPT/HCPCS: 77063; 77067

== ENCOUNTER 2024-09-24 11:58 | Outpatient (CLI) | payer OTHER, SELFPAY ==
--- NOTE | ~2024-09-24 | MM_ITS ---
EXAMINATION: MM screening [facility] BI w jacqueline HISTORY: Screening TECHNIQUE: Craniocaudal and mediolateral oblique 3-D tomosynthesis images were obtained and synthetic 2-D images were generated. CAD analysis was submitted and interpreted. COMPARISON: Comparison to multiple prior studies sequentially, with oldest reviewed study dated 03/05. BREAST PARENCHYMAL COMPOSITION: Not dense: There are scattered areas of fibroglandular density. FINDINGS: There is no evidence of suspicious mass, calcification, or architectural distortion to sugg est malignancy in either breast. There has been no suspicious interval change. IMPRESSION: 1. No mammographic evidence of malignancy. 2. Recommend routine screening mammography in one year. BI-RADS Category 1: Negative Reviewed, dictated and finalized at location B. [employer]
== END 2024-09-24 11:59 | disposition home or self-care (01) ==
PROVIDERS: PCP Family Medicine; Visit Provider Obstetrics & Gynecology
DX: Z12.31 Encounter for screening mammogram for malignant neoplasm of breast (principal)
CPT/HCPCS: 77063; 77067